=== PATIENT | male | born 1980 | race Caucasian/White ===

== ENCOUNTER 2021-06-01 13:06 | Emergency (ER) | payer BC ==
[2021-06-01] MEDS ORDERED: Sodium Chloride 0.9% 1,000 ML IV ONE (13:13)
[2021-06-01] MEDS ORDERED: LORazepam 0.5 MG Tab PO ONE (13:22)
[2021-06-01 14:00] LABS: BLOOD UREA NITROGEN,BUN 14 mg/dL (7.0-18.0); CARBON DIOXIDE,CO2 27.3 mmol/L (21.0-32.0); CHLORIDE,CL 102 mmol/L (98-107); GLUCOSE RANDOM 160 mg/dL (74-106); POTASSIUM,K 4.2 mmol/L (3.5-5.1); SODIUM,NA 139 mmol/L (136-148)
[2021-06-01 14:36] VITALS: BP 122/77; PULSE 67
== END 2021-06-01 14:17 | disposition home or self-care (01) ==
LOC: MW.ED 13:06
DX: R55 Syncope and collapse (principal); R42 Dizziness and giddiness
CPT/HCPCS: 36415; 71045; 80053; 84443; 84484; 85025; 93005; 99284; A9270; J7030